=== PATIENT | female | born 1965 | race American Indian/Alaskan Native ===

== ENCOUNTER 2018-09-08 07:50 | Outpatient (CLI) | payer MEDICARE, MEDICAID ==
[2018-09-08] MEDS ORDERED: XYLOCAINE TOPICAL 4% TP ONE (08:09)
[2018-09-08] MEDS ORDERED: AD OINTMENT TP SCH (10:00)
== END 2018-09-08 07:51 | disposition home or self-care (01) ==
LOC: WOUND 07:50
PROVIDERS: ATTEND Surgery
DX: E11.621 Type 2 diabetes mellitus with foot ulcer (principal); L97.512 Non-pressure chronic ulcer of other part of right foot with fat layer exposed; E78.00 Pure hypercholesterolemia, unspecified; I10 Essential (primary) hypertension; F41.9 Anxiety disorder, unspecified; F17.200 Nicotine dependence, unspecified, uncomplicated; Z89.429 Acquired absence of other toe(s), unspecified side
CPT/HCPCS: A6250

== ENCOUNTER 2018-09-15 07:55 | Outpatient (CLI) | payer MEDICARE, MEDICAID ==
[2018-09-15] MEDS ORDERED: XYLOCAINE TOPICAL 4% TP ONE (08:30)
== END 2018-09-15 07:56 | disposition home or self-care (01) ==
LOC: WOUND 07:55
PROVIDERS: ATTEND Surgery
DX: E11.621 Type 2 diabetes mellitus with foot ulcer (principal); L97.512 Non-pressure chronic ulcer of other part of right foot with fat layer exposed; E78.00 Pure hypercholesterolemia, unspecified; I10 Essential (primary) hypertension; F41.9 Anxiety disorder, unspecified; F17.200 Nicotine dependence, unspecified, uncomplicated; Z89.429 Acquired absence of other toe(s), unspecified side

== ENCOUNTER 2018-09-22 07:48 | Outpatient (CLI) | payer MEDICARE, MEDICAID | END 2018-09-22 07:49 | disposition home or self-care (01) | LOC: WOUND 07:48 | PROVIDERS: ATTEND Surgery | DX: E11.621 Type 2 diabetes mellitus with foot ulcer (principal); L97.512 Non-pressure chronic ulcer of other part of right foot with fat layer exposed; E78.00 Pure hypercholesterolemia, unspecified; I10 Essential (primary) hypertension; F41.9 Anxiety disorder, unspecified; F17.200 Nicotine dependence, unspecified, uncomplicated; Z89.429 Acquired absence of other toe(s), unspecified side | CPT/HCPCS: 99212; G0463 ==

== ENCOUNTER 2020-04-10 21:53 | Emergency (ER) | payer MEDICARE, MEDICAID ==
--- NOTE | 2020-04-10 22:43 | XRay Report ---
RIGHT CLAVICLE 2 VIEW(S) INDICATION / CLINICAL INFORMATION: fall, pain COMPARISON: None available. FINDINGS: BONES / JOINT(S): No acute fracture or subluxation. No significant arthritis. SOFT TISSUES: No significant abnormality. ADDITIONAL FINDINGS: None. Signer Name: Preston Montana MD Signed: 04/10/2020 10:38 PM Workstation Name: [id number]
[2020-04-10 22:47] VITALS: BP 134/74
--- NOTE | 2020-04-11 04:00 | Emergency Department Report ---
ED General Adult HPI - General Chief complaint: Extremity Injury, Upper Stated complaint: RIGHT SHOULDER PAIN Time Seen by Provider: 04/11/20 03:44 Source: patient, EMS Mode of arrival: Wheelchair Limitations: No Limitations - History of Present Illness Initial comments: Patient is a 55-year-old -[place] female who presents for right posterior shoulder pain status post fall from chair tonight at home. Patient was immediately ambulatory after fall and presented to ED in person on her own power complaining of 5/10 posterior right shoulder pain. Pain is exacerbated by movement and lifting overhead. Pain is relieved by splinting. There is no numbness or tingling. - Related Data Previous Rx's Medication Instructions Recorded Last Taken Type Cyclobenzaprine [Flexeril] 10 mg PO BID PRN #20 tablet 04/11/20 Unknown Rx Menthol/Camphor [[place] 1 applicatio TP QID PRN #1 tube 04/11/20 Unknown Rx Ointment] Naproxen 500 mg PO BID PRN #30 tablet 04/11/20 Unknown Rx Allergies Allergy/AdvReac Type Severity Reaction Status Date / Time No Known Allergies Allergy Unverified 09/03/18 08:16 ED Review of Systems ROS: Stated complaint: RIGHT SHOULDER PAIN Other details as noted in HPI Constitutional: denies: chills, fever Eyes: denies: eye pain, eye discharge, vision change ENT: denies: ear pain, throat pain Respiratory: denies: cough, shortness of breath, wheezing Cardiovascular: denies: chest pain, palpitations Endocrine: no symptoms reported Gastrointestinal: denies: abdominal pain, nausea, diarrhea Genitourinary: denies: urgency, dysuria, discharge Musculoskeletal: arthralgia Skin: denies: rash, lesions Neurological: denies: numbness, paresthesias, confusion, vertigo Psychiatric: denies: anxiety, depression Hematological/Lymphatic: denies: easy bleeding, easy bruising ED Past Medical Hx - Past Medical History Previous Medical History?: Yes Hx Hypertension: Yes Hx Congestive Heart Failure: Yes Hx Diabetes: Yes Hx Arthritis: Yes Hx Psychiatric Treatment: Yes (depression) Additional medical history: neuropathy - Surgical History Past Surgical History?: Yes Additional Surgical History: toe surgery, ankle surgery, thyroid sx - Social History Smoking Status: Former Smoker Substance Use Type: None - Medications Home Medications: Home Medications Medication Instructions Recorded Confirmed Last Taken Type Cyclobenzaprine [Flexeril] 10 mg PO BID PRN #20 tablet 04/11/20 Unknown Rx Menthol/Camphor [[place] 1 applicatio TP QID PRN #1 tube 04/11/20 Unknown Rx Ointment] Naproxen 500 mg PO BID PRN #30 tablet 04/11/20 Unknown Rx ED Physical Exam - General Limitations: No Limitations General appearance: alert, in no apparent distress - Head Head exam: Present: atraumatic, normocephalic - Eye Eye exam: Present: normal appearance - ENT ENT exam: Present: mucous membranes moist - Neck Neck exam: Present: normal inspection (Drains grams revealing), full ROM. Absent: tenderness ( 1 chance) - Respiratory Respiratory exam: Present: normal lung sounds bilaterally. Absent: respiratory distress, wheezes, stridor, chest wall tenderness - Cardiovascular Cardiovascular Exam: Present: regular rate, normal rhythm, normal heart sounds (Again starting just in 30 3039 burning right now). Absent: systolic murmur, diastolic murmur, rubs, gallop - GI/Abdominal GI/Abdominal exam: Present: soft (Region), normal bowel sounds. Absent: distended, tenderness ( DC was most), bruit, hernia (0) - Rectal Rectal exam: Present: deferred ( was done,) - Extremities Exam Extremities exam: Present: normal inspection, full ROM, tenderness (Right posterior lateral shoulder tenderness), normal capillary refill - Expanded Upper Extremity Exam Right Shoulder Exam: Present: full ROM, tenderness. Absent: swelling, abrasion, laceration, ecchymosis, deformity, crepidus, dislocation, erythema, tenderness over AC joint Upper Arm exam: Present: full ROM. Absent: tenderness, swelling Elbow exam: Present: full ROM. Absent: tenderness, swelling Forearm Wrist exam: Present: full ROM. Absent: tenderness, swelling Hand Wrist exam: Present: full ROM. Absent: tenderness Neuro motor exam: Present: wrist extension intact, thumb opposition intact, thumb IP flexion intact, thumb adduction intact, fingers 2-5 abduction intact Neurosensory exam: Present: radial nerve intact Vascular: Present: normal capillary refill - Back Exam Back exam: Present: normal inspection, full ROM. Absent: tenderness, muscle spasm, paraspinal tenderness, vertebral tenderness (May is ranging 0) - Neurological Exam Neurological exam: Present: alert, oriented X3, CN II-XII intact (Scheduling UA is again), normal gait. Absent: motor sensory deficit, reflexes normal - Expanded Neurological Exam Expanded Patient oriented to: Present: person, place, time Speech: Present: fluid speech (Nonrheumatic he was riding a) Motor strength exam: RUE: 5, LUE: 5, RLE: 5, LLE: 5 Best Eye Response ([place]): (4) open spontaneously Best Motor Response (Boy): (6) obeys commands Best Verbal Response (Boy): (5) oriented Boy Total: 15 - Psychiatric Psychiatric exam: Present: normal affect, normal mood - Skin Skin exam: Present: warm (Patient is a), dry, intact, normal color. Absent: rash ED Course Vital Signs 04/10/20 22:45 Temperature 97.9 F Pulse Rate 79 Respiratory 18 Rate Blood Pressure 134/74 [Left] O2 Sat by Pulse 98 Oximetry ED Medical Decision Making - Radiology Data Radiology results: report reviewed, image reviewed Findings Reporting MD: Preston Montana Dictation Time: April 10, 2020 21:38 Jamil scriptionist: Not available Analog Circuit Designer Date: RIGHT CLAVICLE 2 VIEW(S) INDICATION / CLINICAL INFORMATION: fall, pain COMPARISON: None available. FINDINGS: BONES / JOINT(S): No acute fracture or subluxation. No significant arthritis. SOFT TISSUES: No significant abnormality. ADDITIONAL FINDINGS: None. Signer Name: Preston Montana MD Signed: 04/10/2020 9:38 PM Workstation Name: [id number] - Medical Decision Making X-ray negative for fracture or dislocation no subluxation. Manager Ccu are equal. Range of motion intact with moderate pain. This is a shoulder strain. Patient requested sling for comfort same provided , pain is reduced to 2/10 with medications given in ED. Patient will be DC with prescriptions for NSAIDs, and analgesic balm. Patient will follow up with PCP in 2 to 3 days. Patient verbalizes agreement and understanding with discharge plan. Patient DC'd home in stable condition at this time. Critical care attestation.: If time is entered above; I have spent that time in minutes in the direct care of this critically ill patient, excluding procedure time. ED Disposition Clinical Impression: Sprain of shoulder, right Qualifiers: Encounter type: initial encounter Shoulder sprain type: other part of shoulder region Qualified Code(s): S43.491A - Other sprain of right shoulder joint, initial encounter Disposition: TO HOME OR SELFCARE Is pt being admited?: No Does the pt Need Aspirin: No Condition: Stable Instructions: Shoulder Sprain, How to Use a Shoulder Immobilizer Prescriptions: Cyclobenzaprine [Flexeril] 10 mg PO BID PRN #20 tablet PRN Reason: Muscle Spasm Naproxen 500 mg PO BID PRN #30 tablet PRN Reason: pain Menthol/Camphor [[place] Ointment] 1 applicatio TP QID PRN #1 tube PRN Reason: pain Referrals: JULIO LYNNE MD [Referring] - 3-5 Days Forms: Work/School Release Form(ED) Time of Disposition: 04:43
== END 2020-04-11 04:51 | disposition home or self-care (01) ==
LOC: ED 21:53
DX: S43.491A Other sprain of right shoulder joint, initial encounter (principal); I11.0 Hypertensive heart disease with heart failure; I50.9 Heart failure, unspecified; E11.9 Type 2 diabetes mellitus without complications; M19.90 Unspecified osteoarthritis, unspecified site; F32.9 Major depressive disorder, single episode, unspecified; Z87.891 Personal history of nicotine dependence; Z79.899 Other long term (current) drug therapy; W07.XXXA Fall from chair, initial encounter; Y93.89 Activity, other specified; Y92.89 Other specified places as the place of occurrence of the external cause; Y99.8 Other external cause status
CPT/HCPCS: 99283

== ENCOUNTER 2021-02-26 16:32 | Emergency (ER) | payer MEDICARE, MEDICAID ==
[2021-02-26 17:42] VITALS: BP 125/82
== END 2021-02-26 18:54 ==
LOC: ED 16:32
DX: M25.561 Pain in right knee (principal); Z53.21 Procedure and treatment not carried out due to patient leaving prior to being seen by health care provider